=== PATIENT | male | born 1965 | race American Indian/Alaskan Native ===

== ENCOUNTER 2017-07-24 11:33 | Emergency (ER) | payer OTHER ==
--- NOTE | 2017-07-24 11:43 | Emergency Department Report ---
ED Laceration HPI - HPI Chief Complaint: Wound/Laceration Stated Complaint: THUMB LAC Time Seen by Provider: 07/24/17 11:42 Occurred When: Today Location: Upper Extremity Severity: mild Tetanus Status: Up to Date (2014) Laceration Symptoms: Yes Pain, No Foreign Body Sensation, No Numbness, No Weakness Other History: This is a 52-year-old male nontoxic, well nourished in appearance , no acute signs of distress presents to the ED with c/o of right thumb tip amputation. Patient stated he was at work chopping chicken and by accidentally injuried his right thumb. Patient stated last tetanus was in 2014. Patient stated he has continuous bleeding decreased over time. Patient denies decreased sensation, decreased range of motion, fever, chills, nausea, headache , stiff neck. Patient denies any allergies. Past medical history includes diabetes and hypertension and CHF, [place]. ED Review of Systems ROS: Stated complaint: THUMB LAC Other details as noted in HPI Constitutional: denies: chills, fever Eyes: denies: eye pain, eye discharge, vision change ENT: denies: ear pain, throat pain Respiratory: denies: cough, shortness of breath, wheezing Cardiovascular: denies: chest pain, palpitations Endocrine: no symptoms reported Gastrointestinal: denies: abdominal pain, nausea, diarrhea Genitourinary: denies: urgency, dysuria Musculoskeletal: denies: back pain, joint swelling, arthralgia Skin: denies: rash, lesions Neurological: denies: headache, weakness, paresthesias Psychiatric: denies: anxiety, depression Hematological/Lymphatic: denies: easy bleeding, easy bruising ED Past Medical Hx - Past Medical History Previous Medical History?: Yes Hx Hypertension: Yes Hx Heart Attack/AMI: Yes ("mild") Hx Congestive Heart Failure: Yes Hx Diabetes: Yes Additional medical history: pneumonia - Surgical History Past Surgical History?: No - Social History Smoking Status: Never Smoker Substance Use Type: Alcohol - Medications Home Medications: Home Medications Medication Instructions Recorded Confirmed Last Taken Type Pravastatin [Pravachol] 40 mg PO QDAY 03/24/13 06/27/14 03/22/13 13:00 History Insulin NPH/Regular [NovoLIN 70/30] 18 units SUB-Q QHS #30 day 06/25/14 Unknown Rx Insulin NPH/Regular [NovoLIN 70/30] 36 units SUB-Q QAM #30 day 06/25/14 Unknown Rx Triamter/Hctz 75-50 mg (Nf) 1 tab PO QDAY #60 tablet 06/25/14 06/27/14 Unknown Rx [Maxzide 75-50 mg] amLODIPine [Norvasc] 10 mg PO DAILY #60 tablet 06/25/14 06/27/14 Unknown Rx HYDROcodone/ACETAMINOPHEN [Clarissa 1 each PO Q8H PRN #12 tablet 07/24/17 Unknown Rx 7.5-325 Tablet] Ibuprofen [Motrin] 600 mg PO Q8H PRN #30 tablet 07/24/17 Unknown Rx Sulfamethoxazole/Trimethoprim 1 each PO BID #14 tablet 07/24/17 Unknown Rx [Bactrim DS TAB] Laceration Physical Exam - Exam General: Vital signs noted. No distress. Alert and acting appropriately. GENERAL: The patient is a well-developed, well-nourished in no apparent distress. Patient is alert and acting appropriately for age. Alert and oriented 3, no apparent distress, normal gait, atraumatic. HEENT: Head is normocephalic and atraumatic. PERRL, Extraocular muscles are intact. Pupils are equal, round, and reactive to light and accommodation. Nares appeared normal. Mouth is well hydrated and without lesions. Mucous membranes are moist. Posterior pharynx clear of any exudate or lesions. Mouth is well hydrated and without lesions. Tonsils not erythematous or swollen. Uvula midline. Tongue elevated. Mucous members are moist. Posterior pharynx clear, no exudate or lesions. Patent airways. NECK: Supple. No carotid bruits. No lymphadenopathy or thyromegaly.nontender. No meningitic signs are noted. LUNGS: Clear to auscultation. Non labor breathing. No intercostal retractions. Symmetrical with respiration, no wheezing, no rales, or crackles. HEART: Regular rate and rhythm without murmur, rubs or gallops. No reproducible. S1, S2 present, regular rate and rhythm without murmur, no rubs, no gallops. ABDOMEN: Soft, nontender, and nondistended. Positive bowel sounds. No hepatosplenomegaly was noted. No guarding or rebound tenderness, negative epigastric bruit. Negative psoas sign, negative wang sign, negative McBurneys sign EXTREMITIES: Without any cyanosis, clubbing, rash, lesions or edema. Peripheral pulses intact. Capillary refill less than 2 seconds. Full range of motion bilaterally. NEUROLOGIC: Cranial nerves II through XII are grossly intact. Alert and oriented x 3. Normal gait. Symmetrical strength and sensation. Reflexes 2+ throughout. Cerebellar testing normal. GCS score of 15. PSYCHIATRIC: Normal affect with no suicidal or homicidal ideations. Skin: right thumb tip lateral amputation just middle of the nail with bleeding. Neurovascular intact. Normal range of motion. Laceration Location: Upper Extremity Laceration Exam: Yes Normal Distal CMS, No Foreign Body, No Exposed Tendon, Vessel, or Nerve, No Tendon Injury ED Course - Reevaluation(s) Reevaluation #1: 07/24/17 11:59 Patient is speaking in full sentences with no signs of distress noted. ED Medical Decision Making - Medical Decision Making This is a 52-year-old male that presents with right thumb amputation. Patient is stable and was examined by me. Patient is up to date with tetanus taht he stated 3 years ago. Patient received hemostatic sponge to the area and a pressure dressing with sterile dressing applied and bleeding under control. Finger has been clean with soap and water. Patient is discharged with sterile dressing, bactrim and norco.Patient was instructed not to operate any machinery after discharge due to drowsiness of norco. Patients is present at bedside and stated will drive the patient home. Drug panel UA obtained for workers comp. Patient was instructed to Follow-up with a primary care doctor in 3-5 days or if symptoms worsen and continue return to emergency room as soon as possible. At time of discharge, the patient does not seem toxic or ill in appearance. No acute signs of distress noted. Patient agrees to discharge treatment plan of care. No further questions noted by the patient. Critical care attestation.: If time is entered above; I have spent that time in minutes in the direct care of this critically ill patient, excluding procedure time. ED Disposition Clinical Impression: Amputation of right thumb Qualifiers: Encounter type: initial encounter Qualified Code(s): S68.011A - Complete traumatic metacarpophalangeal amputation of right thumb, initial encounter Disposition: - TO HOME OR SELFCARE Is pt being admited?: No Does the pt Need Aspirin: No Condition: Stable Instructions: Finger Amputation (ED), Sulfamethoxazole/Trimethoprim (By mouth) , Hydrocodone/Acetaminophen (By mouth) Additional Instructions: Follow-up with a primary care doctor in 3-5 days or if symptoms worsen and continue return to emergency room as soon as possible. Prescriptions: HYDROcodone/ACETAMINOPHEN [Clarissa 7.5-325 Tablet] 1 each PO Q8H PRN #12 tablet PRN Reason: Pain Ibuprofen [Motrin] 600 mg PO Q8H PRN #30 tablet PRN Reason: Pain Sulfamethoxazole/Trimethoprim [Bactrim DS TAB] 1 each PO BID #14 tablet Referrals: PRIMARY CARE, [Primary Care Provider] - 3-5 Days SAULO CORTES MD [Staff Physician] - 3-5 Days [facility] [Outside] - 3-5 Days [facility] [Outside] - 3-5 Days Forms: Work/School Release Form(ED)
[2017-07-24 12:04] VITALS: BP 156/106
[2017-07-24] MEDS ORDERED: NORCO 10/325 PO ONE (12:05)
[2017-07-24 12:53] LABS: Amphetamine Screen,Urine PRESUMPTIVE NEGATIVE; Benzodiazepines Screen,Urine PRESUMPTIVE NEGATIVE; Cannabinoid Screen,Urine PRESUMPTIVE NEGATIVE; Cocaine Screen,Urine PRESUMPTIVE NEGATIVE; Methadone Screen,Urine PRESUMPTIVE NEGATIVE; Opiate Screen,Urine PRESUMPTIVE NEGATIVE
== END 2017-07-24 13:36 | disposition home or self-care (01) ==
LOC: ED 11:33
DX: S68.011A Complete traumatic metacarpophalangeal amputation of right thumb, initial encounter (principal); I10 Essential (primary) hypertension; I25.2 Old myocardial infarction; E11.9 Type 2 diabetes mellitus without complications; X58.XXXA Exposure to other specified factors, initial encounter; Y93.89 Activity, other specified; Y92.89 Other specified places as the place of occurrence of the external cause; Y99.8 Other external cause status
CPT/HCPCS: 80307